=== PATIENT | female | born 1970 | race Hispanic/Latino ===

== ENCOUNTER 2016-08-15 20:44 | Emergency (ER) | payer OTHER ==
[2016-08-15] MEDS ORDERED: Adacel (T-DAP) 0.5 ML VIAL ONE (21:28)
[2016-08-15] MEDS ORDERED: Lidocaine 1% 20 ML MDV ONE (21:43)
[2016-08-15] MEDS ORDERED: Triple Antibiotic Oint 1 GM Packet ONE (22:19)
[2016-08-15] MEDS ORDERED: Cephalexin 500 MG CAP ONE (22:22)
[2016-08-15] MEDS ORDERED: Ibuprofen 200 MG TAB ONE (22:23)
== END 2016-08-15 22:35 | disposition home or self-care (01) ==
LOC: NAV ERS 20:44
DX: S91.312A Laceration without foreign body, left foot, initial encounter (principal); Z23 Encounter for immunization; W45.8XXA Other foreign body or object entering through skin, initial encounter
CPT/HCPCS: 12001; 90471; 90715; J2001